=== PATIENT | male | born 1990 | race Caucasian/White ===

== ENCOUNTER 2021-11-04 08:00 | Outpatient (CLI) | payer SELFPAY | END 2021-11-04 23:59 | LOC: LAB.N 08:00 | PROVIDERS: ATTEND Physician Assistant | DX: U07.1 COVID-19 (principal) ==

== ENCOUNTER 2024-02-18 18:26 | Emergency (ER) | payer OTHER ==
[2024-02-18 18:44] VITALS: BP 126/81; O2SAT 98
--- NOTE | 2024-02-18 20:49 | ED Physician Documentation ---
PD HPI UPPER EXT INJURY - Stated complaint Stated Complaint: L THUMB LAC - Chief complaint Chief Complaint: Ext Problem - History obtained from History obtained from: Patient - Additonal information Additional information: HPI from patient. Patient c/o left thumb laceration, sustained at approximately 6 PM tonight while at home. he is right hand dominant. He is UTD on immunizations including tetanus . Denies numbness, weakness. PD PAST MEDICAL HISTORY - Past Medical History Past Medical History: No - Past Surgical History Past Surgical History: Yes - Present Medications Home Medications: Ambulatory Orders Medication Instructions Recorded Confirmed No Known Home Medications 02/18/24 02/18/24 - Allergies Allergies/Adverse Reactions: Allergies Allergy/AdvReac Type Severity Reaction Status Date / Time No Known Drug Allergies Allergy Verified 02/18/24 18:42 - Social History Does the pt smoke?: No Smoking Status: Never smoker PD ED PE NORMAL - Vitals Vital signs reviewed: Yes - General General: Alert and oriented X 3, No acute distress, Well developed/nourished - Extremities Extremities: No tenderness to palpate, Normal ROM s pain - Neuro Neuro: No motor deficit, No sensory deficit PD ED PE EXPANDED - Extremities SHALA UE/Hands Visual: 1 - laceration (1 cm length with minimal/trace involvement of tip of thumbnail (1-2 mm of nail tip)) Procedures - Laceration (location) Finger left Length in cm: 1 Wound type: Linear, Into subcut fat, Clean Neurovascular status: Sensory intact, Motor intact, Vascular intact Tendon involvement: Tendon intact Wound preparation: Chlorhexadine, Irrigated copiously NS, Wound explored Skin layer closure: Dermabond, Steri strips Other: Patient tolerated well, No complications, Neurovascular intact, Tetanus UTD PD Medical Decision Making - ED course Complexity details: considered differential, d/w patient ED course: thumb laceration edges reapproximated with tissue adhesive and, after adequate drying time, reinforced with steri-strips (which were themselves reinforced with benzoin). Return precautions discussed, as were wound care and what to expect regarding the steri-strips and tissue adhesive. Departure - Departure Disposition: 01 Home, Self Care Clinical Impression: Laceration Condition: Good Instructions: ED Laceration Ext Skin Glue Forms: PCP List Discharge Date/Time: 02/18/24 21:27
== END 2024-02-18 21:27 | disposition home or self-care (01) ==
LOC: ED 18:26
DX: S61.012A Laceration without foreign body of left thumb without damage to nail, initial encounter (principal); W26.9XXA Contact with unspecified sharp object(s), initial encounter; Y92.009 Unspecified place in unspecified non-institutional (private) residence as the place of occurrence of the external cause
CPT/HCPCS: 12001; 99283